=== PATIENT | male | born 1995 | race Caucasian/White ===

== ENCOUNTER 2018-07-01 09:55 | Emergency (ER) | payer MEDICAID, OTHER ==
[~2018-07-01] VITALS: Ht 188 cm; Wt 139.0 kg
[2018-07-01 09:55] VITALS: BP 152/85
== END 2018-07-01 12:33 | disposition home or self-care (01) ==
LOC: ED 12:28
DX: S52.614A Nondisplaced fracture of right ulna styloid process, initial encounter for closed fracture (principal); S93.601A Unspecified sprain of right foot, initial encounter; S93.602A Unspecified sprain of left foot, initial encounter; S63.91XA Sprain of unspecified part of right wrist and hand, initial encounter; W10.9XXA Fall (on) (from) unspecified stairs and steps, initial encounter; Y93.89 Activity, other specified; Y92.009 Unspecified place in unspecified non-institutional (private) residence as the place of occurrence of the external cause; Y99.8 Other external cause status
CPT/HCPCS: 29125; 99284

== ENCOUNTER 2018-09-26 10:13 | Emergency (ER) | payer OTHER ==
[~2018-09-26] VITALS: Ht 190.5 cm; Wt 136.8 kg
[2018-09-26 10:21] VITALS: BP 151/82
== END 2018-09-26 10:56 | disposition home or self-care (01) ==
LOC: ED 10:45
DX: L03.115 Cellulitis of right lower limb (principal)
CPT/HCPCS: 99283

== ENCOUNTER 2020-09-05 07:41 | Emergency (ER) | payer SELFPAY ==
[~2020-09-05] VITALS: Ht 190.5 cm; Wt 133.6 kg
--- NOTE | 2020-09-05 08:03 | NUR ---
N/V/D SINCE THIS AM AND SORE THROAT R/T VOMITING AND SOB AND A LITTLE COUGH BOSS TOLD HIM TO COME TO ED TO GET COVID TEST BEFORE RETURNING TO WORK.
--- NOTE | 2020-09-05 08:25 | NUR ---
EKG IN TRIAGE HAD [facility] PT SR ON MONITOR 70S [id number] GCS 15 NO COMPLAINTS AT THIS MOMENT COVID SWAB WALKED TO LAB.
[2020-09-05 08:55] VITALS: BP 113/72
--- NOTE | 2020-09-05 08:56 | NUR ---
Patient/Caregiver given discharge instructions and they have confirmed that they understand the instructions. Patient ambulatory with steady gait.
== END 2020-09-05 09:18 | disposition home or self-care (01) ==
LOC: ED 09:00
DX: B34.9 Viral infection, unspecified (principal); Z20.828 Contact with and (suspected) exposure to other viral communicable diseases; R00.0 Tachycardia, unspecified; I51.7 Cardiomegaly
CPT/HCPCS: 93005; 99283; U0003

== ENCOUNTER 2021-02-08 08:40 | Emergency (ER) | payer MEDICAID, OTHER ==
[~2021-02-08] VITALS: Ht 190.5 cm; Wt 136.2 kg
--- NOTE | 2021-02-08 09:19 | NUR ---
PT OFF THE FLOOR TO XRAY
[2021-02-08 10:16] VITALS: BP 122/66
--- NOTE | 2021-02-08 10:19 | NUR ---
PT DECLINING ARM SLING. PT REC'VD DISCHARGE INSTRUCTIONS AND EDUCATION. PT HAD NO FURTHER QUESTIONS. PT AMBULATED TO DC AREA, STEADY GAIT.
== END 2021-02-08 10:28 | disposition home or self-care (01) ==
LOC: ED 08:43
DX: S20.211A Contusion of right front wall of thorax, initial encounter (principal); S50.01XA Contusion of right elbow, initial encounter; Z87.891 Personal history of nicotine dependence; Z90.89 Acquired absence of other organs; W18.30XA Fall on same level, unspecified, initial encounter; Y93.89 Activity, other specified; Y92.009 Unspecified place in unspecified non-institutional (private) residence as the place of occurrence of the external cause; Y99.8 Other external cause status
CPT/HCPCS: 99284